=== PATIENT | female | born 1975 ===

== ENCOUNTER 2022-04-27 06:11 | Observation (INO) ==
[~2022-04-27 06:11] MED LIST: *HR* OxyCODONE Immed Rel 5 MG TABLET PO ONE; Famotidine 20 MG TABLET PO ONE; tiZANidine 4 MG TABLET PO SCH
[2022-04-27] MEDS ORDERED: CeFAZolin Syr 2,000MG/20 ML 2,000 MG/20 ML SYRINGE IVPB ONE (06:26)
[2022-04-27] MEDS ORDERED: Ringers Solution, Lactated 1,000 ML IVC SCH ×2 (06:30→15:27)
[2022-04-27] MEDS ORDERED: Albuterol 2.5 MG/3 ML NEBULIZER IH ONE (06:46)
[2022-04-27] MEDS ORDERED: Acetaminophen IV 1,000 MG/100 ML BAG IVPB ONE (06:46)
[2022-04-27] MEDS ORDERED: Ondansetron 4 MG/2 ML VIAL IVP PRN ×2 (06:46→15:27)
[2022-04-27] MEDS ORDERED: Famotidine 20 MG/2 ML VIAL IVP ONE (06:47)
[2022-04-27] MEDS ORDERED: *HR* LORazepam 1 MG TABLET PO ONE (06:51)
[2022-04-27] MEDS ORDERED: tiZANidine 4 MG TABLET PO SCH (07:00)
[2022-04-27] MEDS ORDERED: *HR* Remifentanil 2 MG VIAL IVP ONE (07:06)
[2022-04-27] MEDS ORDERED: *HR* Rocuronium Bromide 50 MG/5 ML VIAL ONE (07:15)
[2022-04-27] MEDS ORDERED: *HR* Midazolam HCl 2 MG/2 ML VIAL ONE (07:15)
[2022-04-27] MEDS ORDERED: *HR* FentaNYL (PF) 100 MCG/2 ML VIAL ONE (07:15)
[2022-04-27] MEDS ORDERED: *HR* Propofol 200 MG/20 ML VIAL IVP ONE (07:15)
[2022-04-27] MEDS ORDERED: Ondansetron 4 MG/2 ML VIAL ONE (07:15)
[2022-04-27] MEDS ORDERED: *HR* Succinylcholine 200 MG/10 ML VIAL IVP ONE (07:15)
[2022-04-27] MEDS ORDERED: Lidocaine -MPF 2% 2 ML VIAL ONE (07:15)
[2022-04-27] MEDS ORDERED: EPHEDrine 50 MG/ML VIAL ONE (07:21)
[2022-04-27] MEDS ORDERED: Sugammadex Sodium 200 MG/2 ML VIAL IV ONE (09:13)
[2022-04-27] MEDS ORDERED: *HR* HYDROMORPHONE 2 MG/ML VIAL ONE (11:27)
[2022-04-27] MEDS: *HR* HYDROmorphone PF 0.5 MG/0.5 ML SYRINGE IVP PRN ×6 (11:45→12:43)
[2022-04-27] MEDS ORDERED: *HR* Labetalol 20 MG/4 ML SYRINGE IVP PRN (12:08)
[2022-04-27] MEDS: *HR* FentaNYL (PF) 100 MCG/2 ML VIAL IVP PRN ×2 (12:17→12:22)
[2022-04-27] MEDS ORDERED: Acetaminophen 325 MG TABLET PO PRN (15:27)
[2022-04-27] MEDS ORDERED: Diphenoxylate/Atropine 1 TAB TABLET PO PRN (15:27)
[2022-04-27] MEDS ORDERED: Naloxone 0.4 MG/ML INJ IVP PRN (15:27)
[2022-04-27] MEDS: *HR* OxyCODONE Immed Rel 5 MG TABLET PO PRN ×2 (15:47→20:51)
[2022-04-27] MEDS: ALPRAZolam 0.5 MG TABLET PO PRN (15:47)
[2022-04-27] MEDS: diazePAM 10 MG TABLET PO PRN (16:59)
[2022-04-27] MEDS: Acetaminophen/Butalbital/CaffeineTABLET PO SCH ×2 (17:10→22:20)
[2022-04-27] MEDS: *HR* HYDROcodone/Acet 5/325 mg TABLET PO PRN (17:11)
[2022-04-27] MEDS: CeFAZolin 2 GM/120 ML BAG IVPB SCH (17:12)
[2022-04-27] MEDS: tiZANidine 4 MG TABLET PO PRN (20:51)
[2022-04-27] MEDS ORDERED: diazePAM 2 MG TABLET PO SCH (21:00)
[2022-04-27] MEDS: cloNIDine HCL 0.1 MG TABLET PO SCH (21:30)
[2022-04-27] MEDS: Topiramate 100 MG TABLET PO SCH (21:30)
[2022-04-27] MEDS ORDERED: Ketorolac 30 MG/ML VIAL IVP ONE (22:01)
[2022-04-28] MEDS: CeFAZolin 2 GM/120 ML BAG IVPB SCH (00:03)
[2022-04-28] MEDS: *HR* HYDROcodone/Acet 5/325 mg TABLET PO PRN ×3 (00:03→16:55)
[2022-04-28] MEDS: Nicotine 2 MG GUM BC PRN ×3 (00:03→13:39)
[2022-04-28] MEDS: *HR* OxyCODONE Immed Rel 5 MG TABLET PO PRN ×4 (00:55→20:27)
[2022-04-28] MEDS: tiZANidine 4 MG TABLET PO PRN ×2 (05:10→23:40)
[2022-04-28] MEDS ORDERED: SUMAtriptan 6 MG/0.5 ML SQ PRN (09:00)
[2022-04-28] MEDS: Multivit/Ca/Min/Fe/FA 1 TAB TABLET PO SCH (10:27)
[2022-04-28] MEDS: Folic Acid 1 MG TABLET PO SCH (10:27)
[2022-04-28] MEDS: Topiramate 100 MG TABLET PO SCH ×2 (10:28→20:27)
[2022-04-28] MEDS: lisinopriL 10 MG TABLET PO SCH (10:28)
[2022-04-28] MEDS: diazePAM 10 MG TABLET PO PRN (10:28)
[2022-04-28] MEDS: BUDESONIDE 3 MG PO SCH (10:30)
[2022-04-28] MEDS: Acetaminophen/Butalbital/CaffeineTABLET PO SCH ×3 (10:33→20:27)
[2022-04-28] MEDS: ARIPiprazole 10 MG TABLET PO SCH (10:33)
[2022-04-28 12:06] LABS: Basophils % 0.1 %; Eosinophils % 0.1 %; Hematocrit 28.7 % (35.3-44.9); Hemoglobin 9.4 g/dL (11.5-15.4); Immature Granulocytes % 0.5 % (0-4); Lymphocytes # 3.3 K/mcL (0.6-4.6); Mean Corpuscular HGB Conc 32.8 g/dL (31.6-35.5); Mean Corpuscular Hemoglobin 31.3 pg (28.0-33.3); Mean Corpuscular Volume 95.7 fL (83.0-100.0); Mean Platelet Volume 9.3 fL (9.4-12.4); Monocytes # 1.2 K/mcL (0.0-1.3); Monocytes % 6.5 %; Neutrophils # 13.6 K/mcL (1.6-8.9); Platelet Count 258 K/mcL (140-400); Red Cell Distribution Width 12.9 % (11.5-14.5); Segmented Neutrophils % 74.8 %; White Blood Count 18.1 K/mcL (4.3-11.1)
[2022-04-28 13:01] LABS: BUN/Creatinine Ratio 8 (6-26); Blood Urea Nitrogen 7 mg/dL (6-20); Calcium 7.9 mg/dL (8.6-10.3); Carbon Dioxide 24 mEq/L (23-29); Chloride 109 mEq/L (98-107); Glucose 88 mg/dL (70-105); Osmolality,Calculated 289 (280-300); Sodium 141 mEq/L (136-145); eGFR For African Americans > 60 (> 60); eGFR For Non-African Americans > 60 (> 60)
[2022-04-28] MEDS ORDERED: Nitroglycerin 0.4 MG TAB.SUBL SL PRN (15:21)
[2022-04-28] MEDS: ALPRAZolam 0.5 MG TABLET PO PRN (16:52)
[2022-04-28] MEDS ORDERED: Iron Sucrose Complex 250 MG in 0.9 % Sodium Chloride 250 ML IVPB ONE ×2 (18:49→23:45)
[2022-04-28] MEDS ORDERED: Cyanocobalamin (B-12) 1,000 MCG/ML VIAL SQ ONE (18:49)
[2022-04-28] MEDS: cloNIDine HCL 0.1 MG TABLET PO SCH (20:27)
[2022-04-29] MEDS: *HR* HYDROcodone/Acet 5/325 mg TABLET PO PRN ×2 (00:03→12:35)
[2022-04-29 02:22] LABS: Basophils % 0.2 %; Eosinophils # 0.1 K/mcL (0.0-0.6); Eosinophils % 0.4 %; Hematocrit 26.5 % (35.3-44.9); Hemoglobin 8.4 g/dL (11.5-15.4); Immature Granulocytes % 0.3 % (0-4); Immature Platelets 4.9 % (1.1-6.1); Lymphocytes # 3.7 K/mcL (0.6-4.6); Lymphocytes % 31.6 %; Mean Corpuscular HGB Conc 31.7 g/dL (31.6-35.5); Mean Corpuscular Hemoglobin 30.9 pg (28.0-33.3); Mean Corpuscular Volume 97.4 fL (83.0-100.0); Mean Platelet Volume 10.7 fL (9.4-12.4); Monocytes % 8.6 %; Neutrophils # 6.9 K/mcL (1.6-8.9); Platelet Count 187 K/mcL (140-400); Red Blood Count 2.72 M/mcL (3.82-4.97); Red Cell Distribution Width 13.2 % (11.5-14.5); Segmented Neutrophils % 58.9 %; White Blood Count 11.7 K/mcL (4.3-11.1)
[2022-04-29] MEDS: *HR* OxyCODONE Immed Rel 5 MG TABLET PO PRN ×3 (02:28→13:57)
[2022-04-29 02:35] LABS: BUN/Creatinine Ratio 9 (6-26); Blood Urea Nitrogen 8 mg/dL (6-20); Calcium 7.5 mg/dL (8.6-10.3); Carbon Dioxide 23 mEq/L (23-29); Chloride 110 mEq/L (98-107); Glucose 94 mg/dL (70-105); Magnesium 1.8 mg/dL (1.6-2.6); Osmolality,Calculated 286 (280-300); Potassium 3.9 mEq/L (3.5-5.1); Sodium 139 mEq/L (136-145); Troponin I < 0.03 ng/mL (< 0.04); eGFR For African Americans > 60 (> 60); eGFR For Non-African Americans > 60 (> 60)
[2022-04-29 02:51] LABS: Platelet Estimate Normal (Normal)
[2022-04-29 03:23] VITALS: O2SAT 96
[2022-04-29] MEDS: diazePAM 10 MG TABLET PO PRN ×2 (03:23→12:25)
[2022-04-29] MEDS: Nicotine 2 MG GUM BC PRN (03:48)
[2022-04-29] MEDS ORDERED: Regadenoson 0.4 MG/5 ML SYRINGE IVP ONE ×2 (06:15→10:45)
[2022-04-29] MEDS ORDERED: tiZANidine 4 MG TABLET PO SCH (06:46)
[2022-04-29] MEDS: Acetaminophen/Butalbital/CaffeineTABLET PO SCH ×2 (08:50→13:57)
[2022-04-29] MEDS: ARIPiprazole 10 MG TABLET PO SCH (08:50)
[2022-04-29] MEDS: Multivit/Ca/Min/Fe/FA 1 TAB TABLET PO SCH (08:50)
[2022-04-29] MEDS: Folic Acid 1 MG TABLET PO SCH (08:51)
[2022-04-29] MEDS: Topiramate 100 MG TABLET PO SCH (08:51)
[2022-04-29] MEDS: lisinopriL 10 MG TABLET PO SCH (08:51)
[2022-04-29] MEDS ORDERED: Pantoprazole 40 MG VIAL IVP SCH (09:00)
[2022-04-29] MEDS: BUDESONIDE 3 MG PO SCH (10:18)
[2022-04-29 11:06] VITALS: BP 108/67; PULSE 87; TEMP 97.8
[2022-04-29] MEDS ORDERED: *HR* Methotrexate 2.5 MG TABLET PO SCH (12:00)
[2022-04-30] MEDS ORDERED: Ergocalciferol (VIT D2) 50,000 UNIT (1.25MG) CAP PO SCH (09:00)
== END 2022-04-29 15:16 | disposition home or self-care (01) ==
LOC: SDCAOSI 06:11 → 4WAOSI 06:11
PROVIDERS: ADMIT Orthopaedic Surgery Orthopaedic Surgery of the Spine; ATTEND Orthopaedic Surgery Orthopaedic Surgery of the Spine